=== PATIENT | male | born 1960 | race Hispanic/Latino ===

== ENCOUNTER 2019-10-06 08:55 | Emergency (ER) | payer OTHER | END 2019-10-06 12:09 | disposition home or self-care (01) | LOC: EDH 08:55 | DX: R06.00 Dyspnea, unspecified (principal); E11.9 Type 2 diabetes mellitus without complications; I10 Essential (primary) hypertension; E78.00 Pure hypercholesterolemia, unspecified; Z72.0 Tobacco use | CPT/HCPCS: 36415; 36600; 71045; 74018; 80053; 82550; 82803; 82948; 83880; 84484; 85025; 93005 ==

== ENCOUNTER → 2020-03-19 | Outpatient (CLI) | payer OTHER ==
[~2020-03-19] MED LIST: IOHEXOL 350 MG/ML 100ML INFUS..BTL IV ONE; IOHEXOL-350 50ML VIAL IV ONE
== END | disposition home or self-care (01) ==
LOC: RAH 08:12
PROVIDERS: ATTEND Internal Medicine Cardiovascular Disease
DX: K57.30 Diverticulosis of large intestine without perforation or abscess without bleeding (principal); I73.9 Peripheral vascular disease, unspecified; R60.0 Localized edema
CPT/HCPCS: 75635; Q9967 ×2

== ENCOUNTER 2023-01-13 13:12 | Emergency (ER) | payer OTHER ==
[~2023-01-13] VITALS: Ht 172.7 cm; Wt 122.5 kg
[2023-01-13 16:30] VITALS: BP 111/69; PULSE 68; RESP 18; O2SAT 98
[2023-01-13] MEDS ORDERED: CEPH500B PO (17:28)
[2023-01-13] MEDS ORDERED: DOXY-469 PO (17:28)
[2023-01-13 17:41] LABS: BASOPHILS # (AUTO) 0.07 K/uL (0.00-0.20); BASOPHILS % (AUTO) 0.6 % (0.0-5.0); EOSINOPHILS # (AUTO) 0.33 K/uL (0.00-0.70); HEMATOCRIT 50.9 % (42-54); IMMATURE GRANULOCYTE ABSOLUTE 0.06 K/uL (0-1); LYMPHOCYTES # (AUTO) 2.5 K/uL (1.0-4.8); LYMPHOCYTES % (AUTO) 22.1 % (21.0-51.0); MEAN CORPUSCULAR HEMOGLOBIN 31.6 pg (27.0-33.0); MEAN CORPUSCULAR HGB CONC 33.6 g/dL (32.0-36.0); MEAN CORPUSCULAR VOLUME 94.1 fL (79-99); MONOCYTES # (AUTO) 0.8 K/uL (0.1-1.0); MONOCYTES % (AUTO) 6.7 % (3.0-13.0); NEUTROPHILS # (AUTO) 7.5 K/uL (1.8-7.7); NEUTROPHILS % (AUTO) 67.1 % (40.0-77.0); PLATELET COUNT (AUTO) 346 K/uL (130-400); RED BLOOD CELL COUNT(AUTO) 5.41 MIL/uL (4.50-6.20); RED CELL DISTRIBUTION WIDTH 13.6 % (11.0-15.5); WHITE BLOOD COUNT (AUTO) 11.1 K/uL (4.8-10.8)
[2023-01-13 17:50] LABS: POTASSIUM 3.3 mmol/L (3.5-5.1)
[2023-01-13 17:54] LABS: ALBUMIN 3.4 g/dL (3.5-5.0); BILIRUBIN,TOTAL 0.4 mg/dL (0.2-1.0); TOTAL PROTEIN, SERUM 7.4 g/dL (6.0-8.3)
[2023-01-13 18:47] LABS: ERYTHROCYTE SEDIMENTATION RATE 3 MM/HR (0-20)
== END 2023-01-13 18:23 | disposition home or self-care (01) ==
LOC: EDH 13:12
DX: L02.611 Cutaneous abscess of right foot (principal); E11.51 Type 2 diabetes mellitus with diabetic peripheral angiopathy without gangrene; I10 Essential (primary) hypertension; E11.9 Type 2 diabetes mellitus without complications; E78.00 Pure hypercholesterolemia, unspecified; Z98.890 Other specified postprocedural states
CPT/HCPCS: 36415; 73630; 80053; 85025; 85651